=== PATIENT | male | born 1975 ===

== ENCOUNTER → 2018-11-03 | Outpatient (CLI) | payer OTHER ==
[2018-11-03 19:09] LABS: BF CLARITY TURBID; BF COLOR YELLOW; BF MON % 3 %; BF PMN % 97 %; BF RBC COUNT 18000 /cmm; BF SOURCE SYNOVIAL; BF WBC COUNT 62500 /cmm
== END | disposition home or self-care (01) ==
LOC: SPEC 16:44
PROVIDERS: ATTEND Orthopaedic Surgery
DX: M25.461 Effusion, right knee (principal)
CPT/HCPCS: 36415; 87071; 87075; 89050; 89060